=== PATIENT | female | born 1950 | race American Indian/Alaskan Native ===

== ENCOUNTER 2016-07-31 10:16 | Outpatient (CLI) | payer BC ==
--- NOTE | 2016-07-31 15:32 | Cat Scan Report ---
CT of the abdomen and pelvis with IV and oral contrast. Findings: The the liver, spleen, and pancreas appear normal. The gallbladder is unremarkable. The kidneys are normal in size and configuration with no evidence of mass or hydronephrosis. The adrenal glands are unremarkable. There are no pelvic masses or abnormal fluid collections. The uterus and adnexal regions are unremarkable. There is no radiographic evidence of appendicitis. In the upper midabdomen, there is a somewhat tubular shaped structure in the mesentery best seen on image #35 through 38 of series 2. This may or present the tract of an old drainage tube. There is no surrounding inflammation. No free air is identified. Impression: No significant abnormalities.
== END 2016-07-31 10:17 | disposition home or self-care (01) ==
LOC: CT 10:16
DX: R10.9 Unspecified abdominal pain (principal)
CPT/HCPCS: 36415; 74177; 82565; 84520; Q9967

== ENCOUNTER 2017-01-08 15:50 | Emergency (ER) | payer BC ==
--- NOTE | 2017-01-08 16:03 | Emergency Department Report ---
Stated Complaint: LEFT LEG PAIN Time Seen by Provider: 01/08/17 15:59 - HPI History of Present Illness: PT c/o L calf pain x 3 days, atraumatic Pt reports swelling - ROS Review of Systems: - cp - sob - redness - Exam Physical Exam: PT looks well, non toxic. no rash noted MSE screening note: Focused history and physical exam performed. Due to findings the following was ordered: us ED Disposition for MSE Condition: Stable
[2017-01-08 16:06] VITALS: BP 136/60
--- NOTE | 2017-01-08 16:38 | Emergency Department Report ---
ED Extremity Problem HPI - General Chief complaint: Extremity Injury, Lower Stated complaint: LEFT LEG PAIN Time Seen by Provider: 01/08/17 15:59 Source: patient Mode of arrival: Wheelchair Limitations: No Limitations - History of Present Illness Initial comments: PT c/o L calf pain x 3 days. PT works as nurse. PT states no redness, no rash, no warmth, + swelling pt denies cp/ sob. PT states due to location of the pain she was concerned for DVT. PT states she just wants to be checked up to be sure. PT states she can walk on her leg but it does hurt worse with walking. MD Complaint: extremity pain -: Gradual (3 days ), days(s) Location: left, lower extremity History of Same: No Severity scale (0 -10): 3 Quality: aching Consistency: constant Improves with: other (heat therapy ) Worsens with: weight bearing, walking Associated Symptoms: denies other symptoms - Related Data Home Medications Medication Instructions Recorded Confirmed Last Taken Amlodipine Besylate [Amlodipine 1 tab PO DAILY 04/07/13 04/07/13 04/21/13 Besylate] Clopidogrel Bisulfate [Clopidogrel] 1 tab PO DAILY 04/07/13 04/07/13 04/13/13 Metoprolol [Lopressor] 25 mg PO DAILY 04/07/13 04/07/13 04/21/13 Olmesartan Medoxomil [Benicar] 1 tab PO DAILY 04/07/13 04/07/13 04/07/13 Pantoprazole [Protonix] 1 tab PO DAILY 04/07/13 04/07/13 04/21/13 Simvastatin [Simvastatin] 1 tab PO DAILY 04/07/13 04/07/13 04/21/13 Aspirin [Aspirin TAB] 325 mg PO ONCE 04/21/13 04/21/13 04/13/13 Allergies Allergy/AdvReac Type Severity Reaction Status Date / Time No Known Allergies Allergy Verified 01/08/17 16:06 ED Review of Systems ROS: Stated complaint: LEFT LEG PAIN Other details as noted in HPI Comment: All other systems reviewed and negative Constitutional: denies: fever, malaise Respiratory: denies: shortness of breath, SOB with exertion, SOB at rest Cardiovascular: edema (to L calf ). denies: chest pain Musculoskeletal: as per HPI Skin: denies: rash, change in color ED Past Medical Hx - Past Medical History Hx Hypertension: Yes (2008) Hx Heart Attack/AMI: Yes (2000 s/p angioplasty with stents) Hx GERD: Yes Additional medical history: CAD - Surgical History Hx Coronary Stent: Yes (CAD X 4;2000;2001;2009;2011) Additional Surgical History: HEMORRHOIDECTOMY - Social History Smoking Status: Former Smoker - Medications Home Medications: Home Medications Medication Instructions Recorded Confirmed Last Taken Type Amlodipine Besylate [Amlodipine 1 tab PO DAILY 04/07/13 04/07/13 04/21/13 History Besylate] Clopidogrel Bisulfate [Clopidogrel] 1 tab PO DAILY 04/07/13 04/07/13 04/13/13 History Metoprolol [Lopressor] 25 mg PO DAILY 04/07/13 04/07/13 04/21/13 History Olmesartan Medoxomil [Benicar] 1 tab PO DAILY 04/07/13 04/07/13 04/07/13 History Pantoprazole [Protonix] 1 tab PO DAILY 04/07/13 04/07/13 04/21/13 History Simvastatin [Simvastatin] 1 tab PO DAILY 04/07/13 04/07/13 04/21/13 History Aspirin [Aspirin TAB] 325 mg PO ONCE 04/21/13 04/21/13 04/13/13 History ED Physical Exam - General Limitations: No Limitations General appearance: alert, in no apparent distress - Head Head exam: Present: atraumatic, normocephalic - Eye Eye exam: Present: normal appearance. Absent: PERRL, EOMI, conjunctival injection - ENT ENT exam: Present: normal exam, normal external ear exam - Neck Neck exam: Present: normal inspection, full ROM - Respiratory Respiratory exam: Present: normal lung sounds bilaterally. Absent: respiratory distress, accessory muscle use - Cardiovascular Cardiovascular Exam: Present: regular rate, normal rhythm, normal heart sounds - Extremities Exam Extremities exam: Present: normal inspection, full ROM, other (PT reports L lateral calf pain ). Absent: tenderness - Back Exam Back exam: Present: normal inspection, full ROM. Absent: tenderness, CVA tenderness (R), CVA tenderness (L) - Neurological Exam Neurological exam: Present: alert, oriented X3, normal gait - Psychiatric Psychiatric exam: Present: normal affect, normal mood - Skin Skin exam: Present: warm, dry, intact, normal color. Absent: rash ED Course Vital Signs 01/08/17 16:01 Temperature 98.6 F Pulse Rate 56 L Respiratory 17 Rate Blood Pressure 136/60 O2 Sat by Pulse 99 Oximetry - Reevaluation(s) Reevaluation #1: 01/08/17 16:38 PT returned from vascular lab. pt aware of preliminary US report. PT request dc. Reevaluation #2: 01/08/17 16:42 pt refused analgesic - Pulse Oximetry Interpretation Digit-Finger Initial Pulse Oximetry Readin Actions Taken: none ED Medical Decision Making - Radiology Data Radiology results: report reviewed US LLE - NO DVT - Differential Diagnosis dvt, strain Critical Care Time: No Critical care attestation.: If time is entered above; I have spent that time in minutes in the direct care of this critically ill patient, excluding procedure time. ED Disposition Clinical Impression: Pain of left calf Disposition: DC-01 TO HOME OR SELFCARE Is pt being admited?: No Does the pt Need Aspirin: No Condition: Stable Instructions: Leg Edema (ED) Additional Instructions: Follow up with PCP in 3-5 days Referrals: JACK COULTER MD [Staff Physician] - 3-5 Days Forms: Work/School Release Form(ED) Time of Disposition: 16:39
--- NOTE | 2017-01-09 15:48 | Vascular Lab Report ---
Left Lower Extremity Venous Duplex Study: Reason for Exam: Pain of the left lower extremity. Comments on the Right: A limited duplex study was done of the proximal veins of the right lower extremity. All veins visualized are freely compressible without evidence of internal echogenicity. Flow is spontaneous and phasic throughout. No evidence of acute or chronic thrombus is seen in any of the vessels visualized. Comments on the Left: All veins visualized are freely compressible without evidence of internal echogenicity. Flow is spontaneous and phasic throughout. No evidence of acute or chronic thrombus is seen in any of the vessels visualized. Impression: No evidence of acute or chronic deep venous thrombosis in the left lower extremity.
== END 2017-01-08 17:02 | disposition home or self-care (01) ==
LOC: ED 15:50
DX: M79.662 Pain in left lower leg (principal); I10 Essential (primary) hypertension; I25.2 Old myocardial infarction; K21.9 Gastro-esophageal reflux disease without esophagitis; Z95.1 Presence of aortocoronary bypass graft; Z87.891 Personal history of nicotine dependence; Z79.82 Long term (current) use of aspirin
CPT/HCPCS: 99283

== ENCOUNTER 2017-07-11 07:24 | Outpatient (CLI) | payer BC ==
--- NOTE | 2017-07-11 08:19 | Mammography Report ---
BILATERAL MAMMOGRAM: FINDINGS: The breasts are almost entirely fat (<25% glandular). No mass, distortion, suspicious calcification, or skin change is seen. No significant change when compared to exams dating back to June 2015. CAD was utilized. IMPRESSION: Negative mammogram. There is no mammographic evidence of malignancy. RECOMMENDATION: Follow-up per ACS guidelines. BI-RADS CATEGORY: 1 = Negative ACR BI-RADS MAMMOGRAPHIC CODES: 0 = Needs additional imaging evaluation; 1 = Negative; 2 = Benign; 3 = Probably benign; 4 = Suspicious; 5 = Malignant; 6 = Known biopsy-proven malignancy COMMENT: 1. Dense breast tissue, i.e., adenosis, fibrocystic changes, etc., may obscure an underlying neoplasm. 2. Approximately 10% of cancers are not detected with mammography. 3. A negative mammography report should not delay biopsy if a clinically suspicious mass is present. COMMENT: Patient follow-up letters are generated in [employer].
== END 2017-07-11 07:25 | disposition home or self-care (01) ==
LOC: MAMMO 07:24
DX: Z12.31 Encounter for screening mammogram for malignant neoplasm of breast (principal)
CPT/HCPCS: 77067

== ENCOUNTER 2017-09-10 07:55 | Outpatient (CLI) | payer BC ==
--- NOTE | 2017-09-11 01:05 | Treadmill Report ---
This is a treadmill test. REASON FOR PROCEDURE: Coronary artery disease. The patient exercised for 7 minutes of a Klever protocol, reaching stage III and achieving 8 mets. Peak heart rate 150 beats per minute. Peak blood pressure 167 systolic. There was no chest pain. Test was stopped for fatigue. Baseline ECG was sinus rhythm. With exercise, there was 0-0.[address] depression, no significant dysrhythmias noted. CONCLUSION: 1. Good exercise capacity. 2. No chest pain. 3. Nonspecific ST changes, no ST changes of ischemia. 4. No significant dysrhythmias. This is a negative exercise ECG test. JOB# [id number] MARYLOU/BRICE
== END 2017-09-10 07:56 | disposition home or self-care (01) ==
LOC: CARD 07:55
PROVIDERS: ATTEND Internal Medicine Cardiovascular Disease
DX: I25.10 Atherosclerotic heart disease of native coronary artery without angina pectoris (principal); Z87.891 Personal history of nicotine dependence
CPT/HCPCS: 93017

== ENCOUNTER 2018-07-16 09:29 | Outpatient (CLI) | payer BC ==
--- NOTE | 2018-07-17 08:50 | Mammography Report ---
Screening mammogram: Routine views compared to prior exams dating back to 2012. There is a focal asymmetry in the lateral left breast posteriorly. There is no correlation in the lateral projection. The breast pattern otherwise appears generally unchanged and unremarkable bilaterally. CAD used. Impression: Left asymmetry. Recommendation: Additional compression imaging of the left breast. Ultrasound, if needed. BI-RADS CATEGORY: 0 = Needs additional imaging evaluation ACR BI-RADS MAMMOGRAPHIC CODES: 0 = Needs additional imaging evaluation; 1 = Negative; 2 = Benign; 3 = Probably benign; 4 = Suspicious; 5 = Malignant; 6 = Known biopsy-proven malignancy COMMENT: 1. Dense breast tissue, i.e., adenosis, fibrocystic changes, etc., may obscure an underlying neoplasm. 2. Approximately 10% of cancers are not detected with mammography. 3. A negative mammography report should not delay biopsy if a clinically suspicious mass is present.
== END 2018-07-16 09:30 | disposition home or self-care (01) ==
LOC: MAMMO 09:29
DX: Z12.31 Encounter for screening mammogram for malignant neoplasm of breast (principal); I10 Essential (primary) hypertension; E78.00 Pure hypercholesterolemia, unspecified; K21.9 Gastro-esophageal reflux disease without esophagitis
CPT/HCPCS: 77067

== ENCOUNTER 2018-07-22 12:59 | Outpatient (CLI) | payer BC ==
--- NOTE | 2018-07-22 15:54 | Ultrasound Report ---
LEFT DIGITAL DIAGNOSTIC MAMMOGRAM and LEFT BREAST ULTRASOUND: 07/22/18 12:59:00 CLINICAL: Recalled for asymmetry. COMPARISON:07/16/18 screening FINDINGS: Additional mammographic views were performed and demonstrate partial effacement of asymmetry. A lateral view is negative. Ultrasound of the outer left breast was performed and demonstrated no mass or shadowing to correlate with the mammographic density. A retroareolar cyst at 5 o'clock measures 3 x 3 x 3 mm. IMPRESSION: A 3 mm benign cyst at 5 o'clock and a probably benign mammographic asymmetry. BI-RADS CATEGORY: 3 - - Probably Benign RECOMMENDATION: 6 month followup left mammogram to reevaluate for an outer asymmetry. ACR BI-RADS MAMMOGRAPHIC CODES: 0 = Needs additional imaging evaluation; 1 = Negative; 2 = Benign; 3 = Probably benign; 4 = Suspicious; 5 = Malignant; 6 = Known biopsy-proven malignancy COMMENT: 1. Dense breast tissue, i.e., adenosis, fibrocystic changes, etc., may obscure an underlying neoplasm. 2. Approximately 10% of cancers are not detected with mammography. 3. A negative mammography report should not delay biopsy if a clinically suspicious mass is present. COMMENT: Patient follow-up letters are generated via our [employer] application.
== END 2018-07-22 13:00 | disposition home or self-care (01) ==
LOC: MAMMO 12:59
DX: N60.02 Solitary cyst of left breast (principal); E78.00 Pure hypercholesterolemia, unspecified; I10 Essential (primary) hypertension; K21.9 Gastro-esophageal reflux disease without esophagitis

== ENCOUNTER 2018-08-21 09:45 | Day surgery (SDC) | payer BC ==
[~2018-08-21 09:45] MED LIST: DIPRIVAN 10 MG/ML IV ONE; NACL 0.9% 1000 ML 1,000 ML IV SCH
[2018-08-21] MEDS ORDERED: WATER FOR IRRIG STERILE ONE (10:36)
[2018-08-21] MEDS ORDERED: WATER FOR IRRIG STERILE IR ONE (10:36)
--- NOTE | 2018-08-21 11:10 | Short Stay Summary ---
Short Stay Documentation Date of service: 08/21/18 Narrative H&P: Ms Abbott presents for surveillance colonoscopy. Pt had colonoscopy 5 years ago with removal of a polyp. No gi complaints at this time. Not on plavix or anticoagulation. - History Past Medical History: other Past Surgical History: No surgical history Social history: no significant social history - Allergies and Medications Current Medications: Allergies No Known Allergies Allergy (Verified 01/08/17 16:06) Home Medications Medication Instructions Recorded Confirmed Last Taken Type Amlodipine Besylate 10 tab PO DAILY 04/07/13 08/21/18 08/21/18 History Metoprolol [Lopressor] 12.5 mg PO DAILY 04/07/13 08/21/18 08/21/18 History Pantoprazole [Protonix] 1 tab PO DAILY 04/07/13 08/21/18 08/20/18 History Simvastatin 1 tab PO HS 04/07/13 08/21/18 08/20/18 History Aspirin [Aspirin TAB] 325 mg PO HS 04/21/13 08/21/18 08/20/18 History Avapro 1 tab PO DAILY 08/19/18 08/21/18 08/20/18 History hydroCHLOROthiazide [HCTZ] 12.5 mg PO DAILY 08/19/18 08/21/18 08/21/18 History Active Medications Sodium Chloride (Nacl 0.9% 1000 Ml) 1,000 mls @ 50 mls/hr IV DIRECT PORTIA Last Admin: 08/21/18 10:25 Dose: 50 mls/hr Documented by: - Physical exam General appearance: no acute distress Lungs: Clear to auscultation Heart: Regular rate, Normal S1, Normal S2 Gastrointestinal: normal Extremities: No edema, Full ROM - Disposition Condition at discharge: Good Disposition: DC-01 TO HOME OR SELFCARE Short Stay Discharge Plan Follow up with: KERLINE JACK MD [Primary Care Provider] - 7 Days
--- NOTE | 2018-08-21 11:12 | Operative Report ---
Operative Report Operative Report: Colonoscopy Procedure Note with Snare polypectomy and Biopsy Date of procedure: 08/21/2018 Endoscopist: Tramaine Aragon Pre-op diagnosis: Personal history of colon polyps, surveillance colonoscopy Post-op diagnosis: Colon polyps x 2 Anesthesia: MAC Complications: No immediate complications Estimated blood loss: minimal Procedure: After consent was obtained, the patient was placed in the left lateral decubitus position. The fujinon colonoscope was inserted into the patient's rectum under direct vision, and advanced to the cecum without difficulty. The patient tolerated the procedure well. The views of the mucosa were good. The quality of prep was good. The patient's vital signs were monitored continuously throughout the procedure. Findings: There was an ~3 mm sessile polyp in the ascending colon. The polyp was removed and retrieved with cold snare polypectomy. There was a 1-2 mm sessile polyp in the ascending colon. The polyp was removed and retrieved with cold biopsy forceps. The colon otherwise appeared normal. Impression: 1. Colon polyps x 2 as above removed with snare polypectomy and cold forceps biopsy. Recommendations: -follow-up pathology -repeat colonoscopy for surveillance in 5 years
[2018-08-21 11:50] VITALS: BP 139/66
== END 2018-08-21 09:46 | disposition home or self-care (01) ==
LOC: GIO 09:45
PROVIDERS: ATTEND Internal Medicine Gastroenterology
DX: Z12.11 Encounter for screening for malignant neoplasm of colon (principal); D12.2 Benign neoplasm of ascending colon; I25.10 Atherosclerotic heart disease of native coronary artery without angina pectoris; E78.00 Pure hypercholesterolemia, unspecified; I10 Essential (primary) hypertension; K21.9 Gastro-esophageal reflux disease without esophagitis; Z98.890 Other specified postprocedural states; Z86.010 Personal history of colon polyps; Z79.899 Other long term (current) drug therapy; Z95.1 Presence of aortocoronary bypass graft; Z79.82 Long term (current) use of aspirin
CPT/HCPCS: 45380; 45385; 88305; J2704; J7030

== ENCOUNTER 2018-11-11 07:10 | Outpatient (CLI) | payer BC ==
[2018-11-11 07:43] LABS: Hematocrit 35.2 % (30.3-42.9); Hemoglobin 11.6 gm/dl (10.1-14.3); Mean Corpuscular HGB Conc 33 % (30-34); Mean Corpuscular Volume 89 fl (79-97); Platelet Count 275 K/mm3 (140-440); Red Blood Count 3.94 M/mm3 (3.65-5.03); Red Cell Distribution Width 13.4 % (13.2-15.2)
[2018-11-11 08:05] LABS: Albumin 4.3 g/dL (3.9-5); Calcium 9.6 mg/dL (8.4-10.2); Chol/HDL Ratio 2.5 %
[2018-11-11 08:11] LABS: Free T4 (Free Thyroxine) 1.26 ng/dL (0.76-1.46)
[2018-11-14 14:21] LABS: Vitamin D, 25-OH, D2 <4 ng/mL
== END 2018-11-11 07:11 | disposition home or self-care (01) ==
LOC: LAB 07:10
PROVIDERS: ATTEND Internal Medicine
DX: I12.9 Hypertensive chronic kidney disease with stage 1 through stage 4 chronic kidney disease, or unspecified chronic kidney disease (principal); N18.3 Chronic kidney disease, stage 3 (moderate); R53.83 Other fatigue; E55.9 Vitamin D deficiency, unspecified; E78.00 Pure hypercholesterolemia, unspecified; K21.9 Gastro-esophageal reflux disease without esophagitis
CPT/HCPCS: 36415; 80053; 80061; 82306; 84439; 84443; 85027

== ENCOUNTER 2018-12-16 07:08 | Outpatient (CLI) | payer BC ==
--- NOTE | 2018-12-16 12:35 | Treadmill Report ---
EXERCISE STRESS TEST REPORT REASON FOR PROCEDURE: Coronary artery disease. The patient exercised for 8 minutes of a Klever protocol, reaching stage 3 and achieving 9 mets. Peak heart rate was 147 beats per minute. Peak blood pressure was 151/55. There was no chest pain. Test was stopped for fatigue. Baseline ECG was sinus rhythm. With exercise, there was 0-0.[address] depression at peak exercise that resolved promptly on cessation of exercise. No arrhythmias were noted. CONCLUSION: 1. Above average exercise capacity. 2. No chest pain. 3. Nonspecific ST-T changes, no ischemic changes noted. 4. No significant dysrhythmias. This is a negative exercise ECG test. JOB# [id number] MARYLOU/BRICE
== END 2018-12-16 07:09 | disposition home or self-care (01) ==
LOC: ECHO 07:08
PROVIDERS: ATTEND Internal Medicine Cardiovascular Disease
DX: I08.3 Combined rheumatic disorders of mitral, aortic and tricuspid valves (principal); I10 Essential (primary) hypertension
CPT/HCPCS: 93017; 93306

== ENCOUNTER 2019-02-24 10:37 | Outpatient (CLI) | payer BC | END 2019-02-24 10:38 | disposition home or self-care (01) | LOC: LAB 10:37 | PROVIDERS: ATTEND Internal Medicine | DX: E11.9 Type 2 diabetes mellitus without complications (principal); E61.2 Magnesium deficiency; E78.00 Pure hypercholesterolemia, unspecified; K21.9 Gastro-esophageal reflux disease without esophagitis; I10 Essential (primary) hypertension | CPT/HCPCS: 36415; 83036; 83735 ==

== ENCOUNTER 2019-07-23 08:48 | Outpatient (CLI) | payer BC, MEDICARE ==
--- NOTE | 2019-07-23 09:57 | Mammography Report ---
DIGITAL SCREENING MAMMOGRAM WITH CAD, 07/23/2019 INDICATION: Routine screening mammography. TECHNIQUE: Digital bilateral 2D mammography was obtained in the craniocaudal and mediolateral obliq ue projections. This examination was interpreted with the benefit of Computer-Aided Detection analysi s. COMPARISON: 07/16/2018 FINDINGS: Breast Density: There are scattered areas of fibroglandular density. There is no evidence of dominant mass, suspicious calcifications or architectural distortion in eithe r breast. IMPRESSION: No mammographic evidence of malignancy. Follow up recommendation: Routine yearly BI-RADS Category 1: Negative. A "normal" or negative report should not discourage follow up or biopsy of a clinically significant f inding. A written summary of these findings will be mailed to the patient. The patient will be entered into a mammography reporting system which will generate a reminder letter for the patient's next appointmen t at the appropriate interval. The [employer] recommends yearly mammograms starting at age 40 and continuing as l hermelinda as a woman is in good health. Breast MRI is recommended for women with an approximate 20-25% or greater lifetime risk of breast cancer, including women with a strong family history of breast or ova ismael cancer or who have been treated for Hodgkin's disease. Signer Name: Valentino Herrera MD Signed: 07/23/2019 9:52 AM Workstation Name: [id number]
== END 2019-07-23 08:49 | disposition home or self-care (01) ==
LOC: MAMMO 08:48
DX: Z12.31 Encounter for screening mammogram for malignant neoplasm of breast (principal); N64.89 Other specified disorders of breast
CPT/HCPCS: 77067